=== PATIENT | male | born 1945 | race Two or more races ===

== ENCOUNTER 2018-04-13 23:52 | Inpatient (IN) | payer MEDICARE, OTHER ==
[~2018-04-13] VITALS: Ht 170.2 cm; Wt 67.9 kg
[~2018-04-13 23:52] MED LIST: LISI-646; TRIA37.575
[2018-04-14] MEDS ORDERED: ONDANSETRON HCL 4 MG/2 ML VIAL ONE (00:50)
[2018-04-14] MEDS ORDERED: SODIUM CHLORIDE 0.9% 1,000 ML IV ONE (00:51)
[2018-04-14] MEDS ORDERED: ONDANSETRON HCL 4 MG/2 ML VIAL IV ONE ×2 (01:00→06:30)
[2018-04-14] MEDS ORDERED: SPIRONOLACTONE 25 MG TAB PO ONE (01:00)
[2018-04-14 01:13] LABS: Basophils # (auto) 0 uL; Eosinophils # (auto) 0 uL; Lymphocytes # (auto) 0.4 uL; Monocytes # (auto) 0.5 uL; Neutrophils # (auto) 3.7 uL; Nucleated Red Blood Cells % 0.1 %
[2018-04-14 01:16] LABS: Basophils % (auto) 0.2 % (0.0-2.0); Hematocrit 19.4 % (41.0-53.0); Lymphocytes % (auto) 9.2 % (10.0-50.0); Mean Corpuscular Hemoglobin 26.8 pg (28.0-32.0); Mean Corpuscular Hgb Conc. 33.4 g/dL (32.0-36.0); Mean Corpuscular Volume 80.2 fL (80.0-100.0); Monocytes % (auto) 10.9 % (0.0-12.0); Neutrophils % (auto) 79.7 % (37.0-80.0); Platelet Count (auto) 89 10^3/uL (140-450); Red Blood Cells 2.42 10^6/uL (4.5-5.90); White Blood Cell 4.7 10^3/uL (4.4-10.8)
[2018-04-14 01:35] LABS: Albumin 1.9 g/dL (3.4-5.0); BUN/Creatinine Ratio 28.3; Calcium 7.3 mg/dL (8.5-10.1); Magnesium 2.8 mg/dL (1.6-2.6); Total Protein 5.7 g/dL (6.4-8.2)
[2018-04-14 01:39] LABS: Bilirubin, Total 0.6 mg/dL (0.2-1.0)
[2018-04-14 01:40] LABS: Potassium 5.9 mmol/L (3.5-5.1)
[2018-04-14 01:41] LABS: Hemoglobin 6.5 g/dL (13.5-17.5); Red Cell Distribution Width 22.4 % (11.8-14.3)
[2018-04-14] MEDS ORDERED: SODIUM BICARBONATE 8.4 % INJ 50ML VIAL IV ONE (02:00)
[2018-04-14] MEDS ORDERED: FUROSEMIDE 40 MG/4 ML VIAL IV ONE (02:00)
[2018-04-14] MEDS ORDERED: DEXTROSE (50%) 50ML SYRG IV ONE (02:00)
[2018-04-14] MEDS ORDERED: SODIUM POLYSTYRENE SULF 15GM/60ML SUSP PO ONE (02:00)
[2018-04-14] MEDS ORDERED: CALCIUM GLUC 4.65meq/50ml D5AE 50 ML IV ONE (02:00)
[2018-04-14] MEDS ORDERED: InsuLIN REG 1unit/0.01ml Soln (100units/ml) IV ONE (02:00)
[2018-04-14 02:03] LABS: INR 1.21 (0.9-1.15); Partial Thromboplastin Time 25.2 sec (23.78-33.04); Prothrombin Time 12.8 sec (9.27-12.13)
[2018-04-14 04:08] VITALS: BP 74/50
[2018-04-14 04:23] VITALS: BP 83/52
[2018-04-14 04:44] LABS: Urine Bacteria NONE SEEN /hpf (None Seen); Urine Blood Negative /uL (Negative); Urine Hyaline Cast FEW /lpf (0 - 2); Urine Mucus FEW (None Seen); Urine Specific Gravity 1.016 (1.001-1.035); Urine WBC 1 /hpf (0 - 3)
[2018-04-14 06:10] VITALS: BP 91/50
[2018-04-14] MEDS ORDERED: ONDANSETRON HCL 4 MG/2 ML VIAL IV PRN (06:45)
[2018-04-14 09:04] LABS: BUN/Creatinine Ratio 29.1; Calcium 7.9 mg/dL (8.5-10.1); Potassium 5.1 mmol/L (3.5-5.1)
[2018-04-14 09:53] LABS: Hematocrit 28.9 % (41.0-53.0); Hemoglobin 9.7 g/dL (13.5-17.5)
[2018-04-14] MEDS: LACTULOSE 20Gm/30ML SOLN PO SCH ×2 (10:25→22:20)
[2018-04-14] MEDS ORDERED: LIDOCAINE 2% (LOCAL ANESTH.) PF 5ml SDV ONE (11:43)
[2018-04-14] MEDS ORDERED: LIDOCAINE 2%HCL (LOCAL ANESTH.) INJ 10ml MDV IJ ONE (16:15)
[2018-04-14 17:20] VITALS: BP 86/47
[2018-04-14 22:00] VITALS: BP 96/50
[2018-04-15 05:00] VITALS: BP 98/56
[2018-04-15 05:58] LABS: Basophils # (auto) 0 uL; Basophils % (auto) 0.4 % (0.0-2.0); Eosinophils # (auto) 0.1 uL; Eosinophils % (auto) 2.2 % (0.0-7.0); Hematocrit 29.2 % (41.0-53.0); Hemoglobin 9.9 g/dL (13.5-17.5); Lymphocytes # (auto) 0.4 uL; Lymphocytes % (auto) 12.7 % (10.0-50.0); Mean Corpuscular Hemoglobin 28.7 pg (28.0-32.0); Mean Corpuscular Hgb Conc. 33.9 g/dL (32.0-36.0); Mean Corpuscular Volume 84.7 fL (80.0-100.0); Monocytes # (auto) 0.4 uL; Monocytes % (auto) 11.9 % (0.0-12.0); Neutrophils # (auto) 2.4 uL; Neutrophils % (auto) 72.8 % (37.0-80.0); Platelet Count (auto) 69 10^3/uL (140-450); Red Blood Cells 3.45 10^6/uL (4.5-5.90); Red Cell Distribution Width 19.6 % (11.8-14.3); White Blood Cell 3.3 10^3/uL (4.4-10.8)
[2018-04-15 06:22] LABS: Albumin 2.1 g/dL (3.4-5.0); BUN/Creatinine Ratio 31.1; Bilirubin, Total 1.1 mg/dL (0.2-1.0); Calcium 8.1 mg/dL (8.5-10.1); Magnesium 2.7 mg/dL (1.6-2.6); Phosphorus 4.6 mg/dL (2.5-4.90); Potassium 3.9 mmol/L (3.5-5.1); Total Protein 5.9 g/dL (6.4-8.2)
[2018-04-15 09:00] VITALS: BP 94/57
[2018-04-15] MEDS: LACTULOSE 20Gm/30ML SOLN PO SCH ×2 (09:32→21:57)
[2018-04-15] MEDS: PANTOPRAZOLE 40 MG TAB PO SCH (09:32)
[2018-04-15 10:30] LABS: Hepatitis B Surface Antibody Negative
[2018-04-15 12:54] LABS: Hepatitis B Surface Antigen Negative (Negative); Hepatitis C Antibody Negative (Negative)
[2018-04-15 13:00] VITALS: BP 116/61
[2018-04-15 17:00] VITALS: BP 97/55
[2018-04-15 21:41] VITALS: BP 93/57
[2018-04-16 04:49] VITALS: BP 96/56
[2018-04-16 06:23] LABS: Hematocrit 26.7 % (41.0-53.0); Hemoglobin 9.1 g/dL (13.5-17.5)
[2018-04-16 06:40] LABS: BUN/Creatinine Ratio 29.9; Calcium 7.5 mg/dL (8.5-10.1); Potassium 3.7 mmol/L (3.5-5.1)
[2018-04-16 09:00] VITALS: BP 115/54
[2018-04-16] MEDS: LACTULOSE 20Gm/30ML SOLN PO SCH ×2 (09:17→22:00)
[2018-04-16] MEDS: PANTOPRAZOLE 40 MG TAB PO SCH (09:17)
[2018-04-16 13:00] VITALS: BP 90/47
[2018-04-16 17:00] VITALS: BP 90/55
[2018-04-16] MEDS: SPIRONOLACTONE 25 MG TAB PO SCH (17:32)
[2018-04-16 22:19] VITALS: BP 102/52
[2018-04-17 05:16] VITALS: BP 108/60
[2018-04-17 06:02] LABS: Basophils # (auto) 0 uL; Eosinophils # (auto) 0.1 uL; Lymphocytes # (auto) 0.6 uL; Monocytes # (auto) 0.4 uL; Neutrophils # (auto) 1.6 uL; Nucleated Red Blood Cells % 0.2 %; White Blood Cell 2.7 10^3/uL (4.4-10.8)
[2018-04-17 06:05] LABS: Basophils % (auto) 0.4 % (0.0-2.0); Eosinophils % (auto) 2.9 % (0.0-7.0); Hemoglobin 9.1 g/dL (13.5-17.5); Lymphocytes % (auto) 20.5 % (10.0-50.0); Mean Corpuscular Hemoglobin 28.7 pg (28.0-32.0); Mean Corpuscular Hgb Conc. 33.8 g/dL (32.0-36.0); Mean Corpuscular Volume 84.7 fL (80.0-100.0); Monocytes % (auto) 15.5 % (0.0-12.0); Neutrophils % (auto) 60.7 % (37.0-80.0); Platelet Count (auto) 62 10^3/uL (140-450); Red Blood Cells 3.19 10^6/uL (4.5-5.90); Red Cell Distribution Width 19.9 % (11.8-14.3)
[2018-04-17] MEDS: SPIRONOLACTONE 25 MG TAB PO SCH ×2 (06:10→18:14)
[2018-04-17 06:20] LABS: BUN/Creatinine Ratio 27.8; Calcium 7.6 mg/dL (8.5-10.1); Potassium 4.2 mmol/L (3.5-5.1)
[2018-04-17 09:15] VITALS: BP 95/53
[2018-04-17] MEDS: LACTULOSE 20Gm/30ML SOLN PO SCH ×2 (09:32→21:48)
[2018-04-17] MEDS: PANTOPRAZOLE 40 MG TAB PO SCH (09:32)
[2018-04-17 13:24] VITALS: BP 115/62
[2018-04-17 17:20] VITALS: BP 113/55
[2018-04-17] MEDS: NutriHep RTU 240 mL Unflavored PO SCH (18:13)
[2018-04-17 22:02] VITALS: BP 127/63
[2018-04-18] MEDS ORDERED: diphenhdrAMINE HCL 50 MG/1 ML VL IV ONE (00:30)
[2018-04-18] MEDS ORDERED: LORazepam 2MG/ML-1ML VIAL IV ONE (00:30)
[2018-04-18 01:15] LABS: Basophils # (auto) 0 uL; Basophils % (auto) 0.3 % (0.0-2.0); Eosinophils # (auto) 0 uL; Eosinophils % (auto) 0.2 % (0.0-7.0); Hematocrit 31.3 % (41.0-53.0); Hemoglobin 10.3 g/dL (13.5-17.5); Lymphocytes # (auto) 0.2 uL; Lymphocytes % (auto) 5.5 % (10.0-50.0); Mean Corpuscular Hemoglobin 28.3 pg (28.0-32.0); Mean Corpuscular Hgb Conc. 32.9 g/dL (32.0-36.0); Monocytes # (auto) 0.3 uL; Monocytes % (auto) 7.5 % (0.0-12.0); Neutrophils # (auto) 3.3 uL; Neutrophils % (auto) 86.5 % (37.0-80.0); Nucleated Red Blood Cells % 0.1 %; Platelet Count (auto) 74 10^3/uL (140-450); Red Blood Cells 3.64 10^6/uL (4.5-5.90); White Blood Cell 3.8 10^3/uL (4.4-10.8)
[2018-04-18 01:31] LABS: Red Cell Distribution Width 20.3 % (11.8-14.3)
[2018-04-18] MEDS ORDERED: LACTULOSE 20Gm/30ML SOLN PR ONE ×2 (02:15→03:00)
[2018-04-18] MEDS ORDERED: LACTULOSE 20Gm/30ML SOLN ONE ×5 (03:50→03:52)
[2018-04-18 05:42] VITALS: BP 123/74
[2018-04-18] MEDS: SPIRONOLACTONE 25 MG TAB PO SCH ×2 (06:00→17:28)
[2018-04-18] MEDS: NutriHep RTU 240 mL Unflavored PO SCH ×2 (08:00→18:00)
[2018-04-18] MEDS ORDERED: SODIUM CHLORIDE LOCK 0 ML ONE (08:13)
[2018-04-18] MEDS ORDERED: MIDAZOLAM HCL 5 MG/ML-1ML VIAL ONE (08:13)
[2018-04-18] MEDS ORDERED: LIDOCAINE VISCOUS 2% 15ML UD ONE (08:13)
[2018-04-18] MEDS ORDERED: diphenhdrAMINE HCL 50 MG/1 ML VL ONE (08:13)
[2018-04-18] MEDS ORDERED: fentaNYL CITRATE 100 MCG/2 ML VL ONE (08:14)
[2018-04-18 09:10] LABS: BUN/Creatinine Ratio 22.7; Calcium 7.6 mg/dL (8.5-10.1); Potassium 4.2 mmol/L (3.5-5.1)
[2018-04-18] MEDS: PANTOPRAZOLE 40 MG TAB PO SCH (10:00)
[2018-04-18] MEDS: LACTULOSE 20Gm/30ML SOLN PO SCH ×4 (10:00→22:26)
[2018-04-18] MEDS ORDERED: LORazepam 2MG/ML-1ML VIAL IV PRN (14:00)
[2018-04-18] MEDS: RIFAXIMIN 550 MG TAB PO SCH ×2 (14:14→22:27)
[2018-04-19] MEDS: LACTULOSE 20Gm/30ML SOLN PO SCH ×6 (02:44→23:02)
[2018-04-19] MEDS: SPIRONOLACTONE 25 MG TAB PO SCH ×2 (05:57→18:00)
[2018-04-19 07:54] LABS: Anion Gap 16 (5-15); BUN/Creatinine Ratio 20.2; Blood Urea Nitrogen 54 mg/dL (7-18); Calcium 8.2 mg/dL (8.5-10.1); Carbon Dioxide 23 mmol/L (21-32); Chloride 101 mmol/L (98-107); GFR African American 30 mL/min; GFR Non-African American 25 mL/min; Glucose 121 mg/dL (74-106); Magnesium 2.7 mg/dL (1.6-2.6); Potassium 4.3 mmol/L (3.5-5.1); Sodium 140 mmol/L (136-145)
[2018-04-19] MEDS: NutriHep RTU 240 mL Unflavored PO SCH ×2 (08:00→18:00)
[2018-04-19] MEDS: PANTOPRAZOLE 40 MG TAB PO SCH (10:00)
[2018-04-19] MEDS ORDERED: FLUMAZENIL 0.1 MG/ML INJ 10ML MDV IV ONE (10:46)
[2018-04-19] MEDS ORDERED: MIDAZOLAM HCL 5 MG/ML-1ML VIAL ONE (10:46)
[2018-04-19] MEDS ORDERED: SODIUM CHLORIDE LOCK 10 ML ONE (10:46)
[2018-04-19] MEDS ORDERED: NALOXONE HCL 0.4 MG/ML VIAL ONE (10:46)
[2018-04-19] MEDS ORDERED: fentaNYL CITRATE 100 MCG/2 ML VL ONE (10:46)
[2018-04-19 11:04] LABS: Basophils # (auto) 0 uL; Basophils % (auto) 0.3 % (0.0-2.0); Eosinophils # (auto) 0 uL; Eosinophils % (auto) 0.3 % (0.0-7.0); Hematocrit 31.1 % (41.0-53.0); Hemoglobin 10.3 g/dL (13.5-17.5); Lymphocytes # (auto) 0.3 uL; Mean Corpuscular Hemoglobin 28.5 pg (28.0-32.0); Mean Corpuscular Hgb Conc. 33.2 g/dL (32.0-36.0); Mean Corpuscular Volume 85.8 fL (80.0-100.0); Monocytes # (auto) 0.4 uL; Monocytes % (auto) 8.2 % (0.0-12.0); Neutrophils # (auto) 4.5 uL; Neutrophils % (auto) 85.2 % (37.0-80.0); Nucleated Red Blood Cells % 0.1 %; Platelet Count (auto) 89 10^3/uL (140-450); Red Blood Cells 3.62 10^6/uL (4.5-5.90); White Blood Cell 5.2 10^3/uL (4.4-10.8)
[2018-04-19 11:06] LABS: Red Cell Distribution Width 21.1 % (11.8-14.3)
[2018-04-19] MEDS ORDERED: OCTREOTIDE ACETATE 100 MCG in SODIUM CHL 0.9% 50 ML IV ONE (12:00)
[2018-04-19] MEDS ORDERED: LIDOCAINE VISCOUS 2% 15ML UD ONE (12:06)
[2018-04-19] MEDS: RIFAXIMIN 550 MG TAB PO SCH ×2 (13:00→23:03)
[2018-04-19] MEDS: OCTREOTIDE ACETATE 500 MCG in SODIUM CHL 0.9% 99 ML IV SCH ×2 (16:03→22:00)
[2018-04-19 22:00] VITALS: BP 125/76
[2018-04-19] MEDS ORDERED: OCTREOTIDE ACETATE 500 MCG/ML VL ONE (23:48)
[2018-04-20] MEDS: LACTULOSE 20Gm/30ML SOLN PO SCH ×6 (02:00→21:38)
[2018-04-20 05:00] VITALS: BP 119/75
[2018-04-20] MEDS: SPIRONOLACTONE 25 MG TAB PO SCH ×2 (05:52→18:08)
[2018-04-20 07:03] LABS: Albumin 2.1 g/dL (3.4-5.0); BUN/Creatinine Ratio 17.4; Calcium 7.9 mg/dL (8.5-10.1); Potassium 4.8 mmol/L (3.5-5.1)
[2018-04-20 07:06] LABS: Bilirubin, Total 1.4 mg/dL (0.2-1.0); Total Protein 6.2 g/dL (6.4-8.2)
[2018-04-20 07:33] LABS: Basophils # (auto) 0 uL; Basophils % (auto) 0.3 % (0.0-2.0); Eosinophils # (auto) 0 uL; Eosinophils % (auto) 0.6 % (0.0-7.0); Hemoglobin 10.1 g/dL (13.5-17.5); Lymphocytes # (auto) 0.4 uL; Lymphocytes % (auto) 9.6 % (10.0-50.0); Mean Corpuscular Hemoglobin 27.9 pg (28.0-32.0); Mean Corpuscular Hgb Conc. 32.5 g/dL (32.0-36.0); Mean Corpuscular Volume 85.7 fL (80.0-100.0); Monocytes # (auto) 0.6 uL; Monocytes % (auto) 12.5 % (0.0-12.0); Neutrophils # (auto) 3.6 uL; Nucleated Red Blood Cells % 0.2 %; Platelet Count (auto) 75 10^3/uL (140-450); Red Blood Cells 3.61 10^6/uL (4.5-5.90); White Blood Cell 4.7 10^3/uL (4.4-10.8)
[2018-04-20 07:42] LABS: Red Cell Distribution Width 21.5 % (11.8-14.3)
[2018-04-20 08:00] VITALS: BP 103/62
[2018-04-20] MEDS: OCTREOTIDE ACETATE 500 MCG in SODIUM CHL 0.9% 99 ML IV SCH (08:45)
[2018-04-20] MEDS: NutriHep RTU 240 mL Unflavored PO SCH ×2 (08:48→18:09)
[2018-04-20] MEDS: RIFAXIMIN 550 MG TAB PO SCH ×2 (10:11→21:38)
[2018-04-20] MEDS: PANTOPRAZOLE 40 MG TAB PO SCH (10:11)
[2018-04-20] MEDS ORDERED: RIFA550T PO (13:01)
[2018-04-20] MEDS ORDERED: SPIR50TA2 PO (13:01)
[2018-04-20] MEDS ORDERED: PROP60CA8 PO (13:01)
[2018-04-20] MEDS ORDERED: PANT40T PO (13:01)
[2018-04-20] MEDS ORDERED: LACT10SO3 PO (13:01)
[2018-04-20] MEDS ORDERED: FURO40TA PO (13:01)
[2018-04-20 14:03] VITALS: BP 103/62
[2018-04-20 17:00] VITALS: BP 124/71
[2018-04-20 21:58] VITALS: BP 95/58
[2018-04-21] MEDS: LACTULOSE 20Gm/30ML SOLN PO SCH ×3 (02:25→09:42)
[2018-04-21 05:11] VITALS: BP 102/55
[2018-04-21] MEDS: SPIRONOLACTONE 25 MG TAB PO SCH (05:41)
[2018-04-21] MEDS ORDERED: LIDOCAINE 2% (LOCAL ANESTH.) PF 5ml SDV ONE (08:27)
[2018-04-21] MEDS: NutriHep RTU 240 mL Unflavored PO SCH (08:31)
[2018-04-21 09:00] VITALS: BP 117/58
[2018-04-21] MEDS: RIFAXIMIN 550 MG TAB PO SCH (09:42)
[2018-04-21] MEDS: PANTOPRAZOLE 40 MG TAB PO SCH (09:42)
[2018-04-21 11:23] LABS: BUN/Creatinine Ratio 17.6; Calcium 7.4 mg/dL (8.5-10.1); Potassium 3.8 mmol/L (3.5-5.1)
== END 2018-04-21 13:08 | disposition home health service (06) | DRG 368 ==
LOC: EDBD 23:52 → ER 23:57 → TELE 23:58 → TELE-WESTW 04-14 17:00
PROVIDERS: ADMIT Nurse Practitioner Family; ATTEND Internal Medicine
PROC: 0W9G3ZZ Drainage of Peritoneal Cavity, Percutaneous Approach (ICD-10-PCS; principal; 2018-04-14)
PROC: 30233N1 Transfusion of Nonautologous Red Blood Cells into Peripheral Vein, Percutaneous Approach (ICD-10-PCS; 2018-04-14)
PROC: 06L38CZ Occlusion of Esophageal Vein with Extraluminal Device, Via Natural or Artificial Opening Endoscopic (ICD-10-PCS; 2018-04-19)
PROC: 0W9G3ZZ Drainage of Peritoneal Cavity, Percutaneous Approach (ICD-10-PCS; 2018-04-21)
DX: I85.00 Esophageal varices without bleeding (principal); N17.0 Acute kidney failure with tubular necrosis; E43 Unspecified severe protein-calorie malnutrition; D61.818 Other pancytopenia; K76.6 Portal hypertension; K70.31 Alcoholic cirrhosis of liver with ascites; D63.8 Anemia in other chronic diseases classified elsewhere; K72.90 Hepatic failure, unspecified without coma; E10.22 Type 1 diabetes mellitus with diabetic chronic kidney disease; I12.9 Hypertensive chronic kidney disease with stage 1 through stage 4 chronic kidney disease, or unspecified chronic kidney disease; N18.9 Chronic kidney disease, unspecified; Z68.23 Body mass index [BMI] 23.0-23.9, adult; D69.59 Other secondary thrombocytopenia; E87.5 Hyperkalemia; F10.20 Alcohol dependence, uncomplicated; K31.89 Other diseases of stomach and duodenum; Z79.4 Long term (current) use of insulin; Z79.899 Other long term (current) drug therapy; Z82.49 Family history of ischemic heart disease and other diseases of the circulatory system; Z98.84 Bariatric surgery status
CPT/HCPCS: 10022; 36415; 36430; 70450; 71045; 74176; 76705; 76942; 80048; 80053; 81001; 82140; 82270; 82962; 83036; 83735; 83880; 84100; 84484; 84550; 85014; 85018; 85025; 85384; 85610; 85730; 86706; 86803; 86850; 86900; 86901; 86920; 87081; 87205; 87340; 89051; 93005; 96361; 96374; 96375; 96376; J0610; J2001; J2250; J2405

== ENCOUNTER 2018-11-20 17:34 | Inpatient (IN) | payer MEDICARE, OTHER ==
[~2018-11-20] VITALS: Ht 170.2 cm; Wt 60.6 kg
[~2018-11-20 17:34] MED LIST changes: -LISI-646; +PANT40T PO; +PROP60CA34 PO; +RIFA550T PO; -TRIA37.575
[2018-11-20 18:34] LABS: Basophils # (auto) 0 uL; Eosinophils # (auto) 0 uL; Hemoglobin 7.5 g/dL (13.5-17.5); Lymphocytes # (auto) 0.2 uL; Mean Corpuscular Volume 74.1 fL (80.0-100.0); Nucleated Red Blood Cells % 0.1 %; White Blood Cell 3.5 10^3/uL (4.4-10.8)
[2018-11-20 18:37] LABS: Basophils % (auto) 0.3 % (0.0-2.0); Hematocrit 23.3 % (41.0-53.0); Lymphocytes % (auto) 5.7 % (10.0-50.0); Mean Corpuscular Hemoglobin 23.9 pg (28.0-32.0); Mean Corpuscular Hgb Conc. 32.3 g/dL (32.0-36.0); Monocytes # (auto) 0.4 uL; Monocytes % (auto) 10.3 % (0.0-12.0); Neutrophils # (auto) 2.9 uL; Neutrophils % (auto) 83.7 % (37.0-80.0); Platelet Count (auto) 60 10^3/uL (140-450); Red Blood Cells 3.14 10^6/uL (4.5-5.90)
[2018-11-20 18:42] LABS: Red Cell Distribution Width 20.9 % (11.8-14.3)
[2018-11-20 19:00] LABS: Alanine Aminotransferase 14 U/L (16-61); Albumin 2.1 g/dL (3.4-5.0); Anion Gap 11 (5-15); Aspartate Aminotransferase 16 U/L (15-37); BUN/Creatinine Ratio 33.1; Blood Alcohol < 3.0 mg/dL (0-5); Blood Urea Nitrogen 78 mg/dL (7-18); Calcium 7.6 mg/dL (8.5-10.1); Carbon Dioxide 30 mmol/L (21-32); Chloride 86 mmol/L (98-107); GFR African American 35 mL/min; GFR Non-African American 29 mL/min; Glucose 147 mg/dL (74-106); Potassium 3.7 mmol/L (3.5-5.1); Sodium 127 mmol/L (136-145)
[2018-11-20 19:05] LABS: Alkaline Phosphatase 133 U/L (45-117); Bilirubin, Total 0.9 mg/dL (0.2-1.0); Total Protein 6.3 g/dL (6.4-8.2)
[2018-11-20 23:04] LABS: Urine Bacteria FEW /hpf (None Seen); Urine Blood 2+ /uL (Negative); Urine Specific Gravity 1.013 (1.001-1.035); Urine WBC 8 /hpf (0 - 3)
[2018-11-20] MEDS ORDERED: LORazepam 2MG/ML-1ML VIAL ONE (23:05)
[2018-11-20 23:13] LABS: Alcohol, Urine < 3.0 mg/dL (0-5); Amphetamine Screen, Urine NEGATIVE (NEGATIVE); Barbiturate Scree,Urine NEGATIVE (NEGATIVE); Benzodiazephine Screen, Urine NEGATIVE (NEGATIVE); Cannabinoid Screen, Urine NEGATIVE (NEGATIVE); Cocaine Screen, Urine NEGATIVE (NEGATIVE); Opiate Scree,Urine NEGATIVE (NEGATIVE); Phencyclidine Screen, Urine NEGATIVE (NEGATIVE)
[2018-11-20] MEDS ORDERED: LORazepam 2MG/ML-1ML VIAL IV ONE (23:15)
[2018-11-20] MEDS ORDERED: LACTULOSE 20Gm/30ML SOLN PO ONE (23:45)
[2018-11-21] MEDS ORDERED: MORPHINE SULFATE 4 MG/ML SYR/VIAL IV PRN (00:45)
[2018-11-21] MEDS ORDERED: DEXTROSE (50%) 50ML SYRG IV PRN (00:45)
[2018-11-21] MEDS ORDERED: NITROGLYCERIN 0.4 MG SL TAB SL PRN (00:45)
[2018-11-21] MEDS: SODIUM CHLORIDE 0.9% 1,000 ML IV SCH ×3 (01:20→15:49)
--- NOTE | 2018-11-21 05:45 | NUR ---
KATLYN Serna paged regarding critical hgb 6.0 awaiting call back. will continue care. Addendum: 11/22/18 at 0703 by Sarah Skaggs RN wrong date, actual date on 11/22/18
[2018-11-21] MEDS: InsuLIN REG 1unit/0.01ml Soln (100units/ml) SC SCH ×3 (06:00→17:33)
[2018-11-21] MEDS: ACCU-CHEK COMFORT CURVE STRIP VI SCH ×3 (06:00→17:33)
[2018-11-21] MEDS ORDERED: PROPRANOLOL HCL 20 MG TAB PO SCH (06:00)
[2018-11-21] MEDS: PANTOPRAZOLE 40 MG TAB PO SCH (08:11)
[2018-11-21] MEDS: RIFAXIMIN 550 MG TAB PO SCH ×2 (09:34→22:00)
[2018-11-21] MEDS: MIDODRINE HCL 10 MG TAB PO SCH ×2 (09:34→23:16)
[2018-11-21] MEDS ORDERED: LACTULOSE 20Gm/30ML SOLN PO SCH (10:00)
[2018-11-21] MEDS: LACTULOSE 20Gm/30ML SOLN PO SCH ×2 (17:47→23:16)
[2018-11-21 22:15] VITALS: BP 93/60
--- NOTE | 2018-11-21 22:15 | NUR ---
Telemetry admit from [facility] admitted to Telemetry unit after SBAR received. Patient oriented to Sarah Skaggs primary RN, unit, room, bed, and unit policies regarding patient care and visiting hours. Patient now on continuous telemetry monitoring, tele box # HC15 and telemetry reading on arrival to unit is . Patient placed on bedside oxygen, weighed by bedscale and encouraged to call if they need something. All questions and concerns addressed, patient verbalized understanding. Note: alert and oriented x 4. kinyarwanda speaking. mobile unit assistant at bedside. on room air with even and unlabored respirations. no s/s of distress or SOB. patient denies pain at this time. patient turns with minimal assistance. abd large and round with drainage bag to right abd. daughter at bedside. sitter at bedside. bed low locked position with side rails up x 2 and call light within reach. will continue to monitor.
--- NOTE | 2018-11-21 22:30 | NUR ---
KATLYN Serna paged regarding patient drainage bag and BP 93/60 daughter reports she "drained 2L of fluid on Wednesday and was suppose to drain another 2L on Wednesday but his blood pressure was low and usually drops when drains" will updated KATLYN Serna. awaiting call back. will continue care.
--- NOTE | 2018-11-21 22:50 | NUR ---
Received call back regarding drainage system updated AUTOMOBILE BUMPER STRAIGHTENER Serna on patient status and situation, hold any drainage from family until MD evaluates patients and orders obtained. new order given for albumin 25% 100mL IV once. read back and verified. will continue care.
--- NOTE | 2018-11-21 22:55 | NUR ---
Family updated on pt status Family of BEATRIS GUERRA updated on patient's status and condition regarding drainage. All questions and concerns addressed. Faviola verbalized understanding.
[2018-11-21] MEDS ORDERED: ALBUMIN 25% 100 ML IV ONE (23:00)
[2018-11-22] MEDS: ACCU-CHEK COMFORT CURVE STRIP VI SCH ×3 (00:08→12:21)
[2018-11-22 05:33] LABS: Basophils # (auto) 0 uL; Basophils % (auto) 0.7 % (0.0-2.0); Monocytes # (auto) 0.4 uL; Red Blood Cells 2.54 10^6/uL (4.5-5.90)
[2018-11-22 05:35] LABS: Eosinophils # (auto) 0.1 uL; Eosinophils % (auto) 2.5 % (0.0-7.0); Hematocrit 18.7 % (41.0-53.0); Lymphocytes # (auto) 0.2 uL; Lymphocytes % (auto) 10.3 % (10.0-50.0); Mean Corpuscular Hemoglobin 23.6 pg (28.0-32.0); Mean Corpuscular Volume 73.8 fL (80.0-100.0); Monocytes % (auto) 16.7 % (0.0-12.0); Neutrophils # (auto) 1.6 uL; Neutrophils % (auto) 69.8 % (37.0-80.0); Nucleated Red Blood Cells % 0.4 %; Platelet Count (auto) 45 10^3/uL (140-450); White Blood Cell 2.3 10^3/uL (4.4-10.8)
[2018-11-22] MEDS: LACTULOSE 20Gm/30ML SOLN PO SCH ×4 (05:37→21:19)
[2018-11-22] MEDS: PANTOPRAZOLE 40 MG TAB PO SCH (05:37)
[2018-11-22] MEDS: InsuLIN REG 1unit/0.01ml Soln (100units/ml) SC SCH ×3 (05:38→12:00)
--- NOTE | 2018-11-22 05:45 | NUR ---
KATLYN Serna paged regarding critical hgb 6.0 awaiting call back. will continue care.
--- NOTE | 2018-11-22 05:50 | NUR ---
KATLYN Serna returned page updated on patient status and the hold on transfusion per MD Calvert according to ER notes. Orders were given to administer the 1 unit of PRBC. Informed KATLYN Serna on BP 92/51, no new orders. will continue care.
[2018-11-22 05:55] LABS: Albumin 2.1 g/dL (3.4-5.0); BUN/Creatinine Ratio 34.9; Calcium 7.5 mg/dL (8.5-10.1); Magnesium 2.3 mg/dL (1.6-2.6)
[2018-11-22 05:58] LABS: Bilirubin, Total 0.8 mg/dL (0.2-1.0); Total Protein 5.3 g/dL (6.4-8.2)
[2018-11-22 06:12] VITALS: BP 92/51
--- NOTE | 2018-11-22 06:26 | NUR ---
PRBC Started no s/s of distress. will continue to monitor.
[2018-11-22 06:41] VITALS: BP 87/48
[2018-11-22 06:42] VITALS: BP 87/48
--- NOTE | 2018-11-22 07:07 | NUR ---
Closing note patient awake resting in bed with even and unlabored respirations on room air. no s/s of distress, SOB or pain. IV intact and patent infusing blood at 100mL/hr. Bed low locked position with side rails up x 2 and call light within reach. Sitter at bedside. Endorsed care to day shift TJ Kenyon.
[2018-11-22 07:41] VITALS: BP 102/57
--- NOTE | 2018-11-22 08:00 | NUR ---
Opening Shift Note Assumed care of patient, awake, alert and oriented X4. Patient is Cambodian speaking only, translation provided by TJ Deleon. No S/S of distress/SOB or pain. Tele# 15, sinus rhythm @ 69 bpm. IV X2, right antecubital, 20 gauge, and left antecubital, 20 gauge, both patent. PRBC's transfusing into right antecubital. Right abdominal drain in place with dressing clean, dry and intact. Instructed on POC and to call for assist PRN, verbalized understanding. Bed locked, in lowest position, call light within reach, occupational safety and health manager remains at bedside for patient safety, will continue to monitor for changes Q1hr and PRN.
[2018-11-22 09:35] VITALS: BP 90/49
--- NOTE | 2018-11-22 09:35 | NUR ---
PRBC's 1 unit of PRBC's transfused, no reactions noted.
[2018-11-22] MEDS: SODIUM CHLORIDE 0.9% 1,000 ML IV SCH ×2 (10:41→15:06)
[2018-11-22] MEDS: MIDODRINE HCL 10 MG TAB PO SCH ×2 (10:41→21:20)
[2018-11-22] MEDS: RIFAXIMIN 550 MG TAB PO SCH ×2 (10:42→21:19)
--- NOTE | 2018-11-22 13:30 | NUR ---
ROUNDS Dr Calvert at bedside for rounds, new orders received and followed through. Patient updated on plan of care, verbalized understanding.
[2018-11-22 14:19] LABS: Hemoglobin 7.9 g/dL (13.5-17.5)
--- NOTE | 2018-11-22 17:34 | NUR ---
FAMILY Daughter at bedside, verbalized concern regarding speaking to a social services aide. Informed social services aide will be back tomorrow, verbalized she will call tomorrow to speak with social services aide. Daughter at bedside draining ascites fluid from drain, 1 liter of clear, yellow drainage removed. No distress noted.
--- NOTE | 2018-11-22 18:07 | NUR ---
Pt is an alert and oriented but very weak male diagnosed with hepatic encephalopathy. Pt is pleasant and able to have minimal conversation but is primarily slovak speaking. Pt's affect is stoic and suppressive regarding his diagnosis and current condition. Pt experiencing feelings of powerlessness and loss re: self image and abilities. Provided emotional comfort and support to pt. Pt resides with his spouse and has a granddaughter that reside [address] Daughter and spouse have been primary caregivers for pt. Due to disease progression Maddie and spouse are requesting a hospice eval. Provided information on hospice program and list of hospices in the area. Selected [facility] and [facility]. Contacted [facility] and provided [facility] contact information. Faxed referral and notified both Melania and hospice that if pt appropriate pt could be d/c'd tomorrow. will followup and provide intervention as appropriate. Addendum: 11/22/18 at 1819 by ELADIA KEITH Amended: Links added.
--- NOTE | 2018-11-22 19:29 | NUR ---
Care endorsed to TJ Smith, night nurse.
--- NOTE | 2018-11-22 19:40 | NUR ---
Opening Shift Note patient alert and oriented x 4. occitan speaking. investigative analyst at bedside. on room air with even and unlabored respirations. no s/s of distress or SOB. patient denies pain at this time. patient turns with minimal assistance. drainage bag to right abd. sitter at bedside. bed low locked position with side rails up x 2 and call light within reach. instructed on POC and to call for assistance. will continue to monitor.
[2018-11-23] MEDS: LACTULOSE 20Gm/30ML SOLN PO SCH ×3 (06:51→18:00)
[2018-11-23] MEDS: PANTOPRAZOLE 40 MG TAB PO SCH (06:51)
--- NOTE | 2018-11-23 07:00 | NUR ---
Closing note patient awake resting in bed with even and unlabored respirations on room air. no s/s of distress, SOB or pain. IV intact and patent. Bed low locked position with side rails up x 2 and call light within reach. Sitter at bedside. Endorsed care to day shift RN.
[2018-11-23 07:46] LABS: Basophils # (auto) 0 uL; Eosinophils # (auto) 0 uL; Hemoglobin 8.2 g/dL (13.5-17.5); Lymphocytes # (auto) 0.1 uL; Monocytes # (auto) 0.1 uL; Neutrophils # (auto) 2.1 uL; Nucleated Red Blood Cells % 0.3 %
[2018-11-23 07:48] LABS: Basophils % (auto) 0.1 % (0.0-2.0); Eosinophils % (auto) 0.3 % (0.0-7.0); Mean Corpuscular Hemoglobin 25.2 pg (28.0-32.0); Mean Corpuscular Hgb Conc. 32.7 g/dL (32.0-36.0); Monocytes % (auto) 4.6 % (0.0-12.0); Platelet Count (auto) 43 10^3/uL (140-450); Red Blood Cells 3.25 10^6/uL (4.5-5.90); White Blood Cell 2.4 10^3/uL (4.4-10.8)
--- NOTE | 2018-11-23 08:00 | NUR ---
Opening Shift Note Assumed care of the patient from the day shift nurse. The patient is A&O, no signs or symptoms of distress. Educated the patient on POC and patient verbalized understanding. The patient's call light is within reach and bed is in the lowest, locked position. Will round hourly and continue to monitor.
[2018-11-23 08:05] LABS: Red Cell Distribution Width 21.1 % (11.8-14.3)
[2018-11-23 08:14] LABS: Anion Gap 12 (5-15); BUN/Creatinine Ratio 32.9; Blood Urea Nitrogen 68 mg/dL (7-18); Calcium 7.4 mg/dL (8.5-10.1); Carbon Dioxide 24 mmol/L (21-32); Chloride 95 mmol/L (98-107); GFR African American 40 mL/min; GFR Non-African American 33 mL/min; Glucose 99 mg/dL (74-106); Potassium 3.7 mmol/L (3.5-5.1); Sodium 131 mmol/L (136-145)
[2018-11-23 08:30] VITALS: BP 97/64
[2018-11-23] MEDS: MIDODRINE HCL 10 MG TAB PO SCH (10:19)
[2018-11-23] MEDS: RIFAXIMIN 550 MG TAB PO SCH (10:19)
[2018-11-23] MEDS: SODIUM CHLORIDE 0.9% 1,000 ML IV SCH (10:19)
[2018-11-23] MEDS ORDERED: MID10T PO (12:10)
[2018-11-23] MEDS ORDERED: LACT10SO3 PO (12:10)
[2018-11-23 12:30] VITALS: BP 90/53
[2018-11-23 17:00] VITALS: BP 96/51
--- NOTE | 2018-11-23 18:47 | NUR ---
Discharge instructions given as ordered. Encourage to follow up with PMD as instructed. Patient placed on hospice with [facility]. All questions and concerns addressed. Patient and family verbalized understanding. Medication reconciliation form completed and copy given to patient. Home medications held in Pharmacy returned to patient, and needed vaccines given. IV removed with catheter intact, pressure dressing applied. Telemetry unit returned to ICU. Patient taken by [facility] via wheelchair with all personal belongings, accompanied by staff and family member. No distress noted at time of departure.
== END 2018-11-23 18:47 | disposition hospice, home (50) | DRG 441 ==
LOC: EDBD 17:34 → ER 17:34 → TELE 11-21 00:43 → TELE-WESTW 11-21 22:08
PROVIDERS: ADMIT Nurse Practitioner; ATTEND Internal Medicine
PROC: 30233N1 Transfusion of Nonautologous Red Blood Cells into Peripheral Vein, Percutaneous Approach (ICD-10-PCS; principal; 2018-11-22)
DX: K72.90 Hepatic failure, unspecified without coma (principal); K76.7 Hepatorenal syndrome; E43 Unspecified severe protein-calorie malnutrition; G93.41 Metabolic encephalopathy; N17.9 Acute kidney failure, unspecified; D61.818 Other pancytopenia; C22.9 Malignant neoplasm of liver, not specified as primary or secondary; E87.1 Hypo-osmolality and hyponatremia; K76.6 Portal hypertension; I85.10 Secondary esophageal varices without bleeding; Z66 Do not resuscitate; K70.31 Alcoholic cirrhosis of liver with ascites; F10.10 Alcohol abuse, uncomplicated; N18.9 Chronic kidney disease, unspecified; E11.22 Type 2 diabetes mellitus with diabetic chronic kidney disease; I95.9 Hypotension, unspecified; K31.89 Other diseases of stomach and duodenum; D63.8 Anemia in other chronic diseases classified elsewhere; I12.9 Hypertensive chronic kidney disease with stage 1 through stage 4 chronic kidney disease, or unspecified chronic kidney disease; Z68.20 Body mass index [BMI] 20.0-20.9, adult; Z82.49 Family history of ischemic heart disease and other diseases of the circulatory system
CPT/HCPCS: 36415; 36600; 70450; 71045; 74176; 76700; 80048; 80053; 80307; 80320; 81001; 82140; 82805; 82962; 83036; 83735; 84484; 85014; 85018; 85025; 86850; 86900; 86901; 86920; 93005; 96374; G0378; P9047